=== PATIENT | female | born 1960 | race Two or more races ===

== ENCOUNTER 2022-05-12 22:35 | Emergency (ER) | payer OTHER ==
[~2022-05-12] VITALS: Ht 167.6 cm; Wt 88.0 kg
[2022-05-12] MEDS ORDERED: CATAFLAN (22:51)
[2022-05-12] MEDS ORDERED: NORFLEC (22:52)
[2022-05-12] MEDS ORDERED: CARDIA (22:52)
[2022-05-12] MEDS ORDERED: [UNRECOGNIZED DRUG - OTHER] (22:53)
== END 2022-05-12 23:33 | disposition home or self-care (01) ==
LOC: ER 22:35
DX: M62.830 Muscle spasm of back (principal); M62.838 Other muscle spasm; Z88.8 Allergy status to other drugs, medicaments and biological substances; I10 Essential (primary) hypertension

== ENCOUNTER 2024-08-09 09:26 | Outpatient (CLI) | payer OTHER ==
[~2024-08-09 09:26] MED LIST: CARDIA; CATAFLAN; NORFLEC; [UNRECOGNIZED DRUG - OTHER]
== END 2024-08-09 09:41 | disposition home or self-care (01) ==
LOC: SONOGRAMA 09:26
PROVIDERS: ATTEND Chiropractor
DX: M25.552 Pain in left hip (principal); M25.551 Pain in right hip